=== PATIENT | male | born 1980 | race American Indian/Alaskan Native ===

== ENCOUNTER 2016-10-29 20:32 | Emergency (ER) | payer OTHER ==
[2016-10-29 20:48] VITALS: BP 136/88
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
== END 2016-10-30 00:48 | disposition home or self-care (01) ==
LOC: ED 20:32
DX: H72.92 Unspecified perforation of tympanic membrane, left ear (principal); T70.0XXA Otitic barotrauma, initial encounter; Y92.9 Unspecified place or not applicable; Z87.891 Personal history of nicotine dependence
CPT/HCPCS: 99282